=== PATIENT | male | born 2000 | race Caucasian/White ===

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

== ENCOUNTER 2022-01-19 16:28 | Emergency (ER) | payer MEDICAID ==
[~2022-01-19] VITALS: Ht 177.8 cm; Wt 77.3 kg
[2022-01-19 16:35] VITALS: BP 121/73
[2022-01-19] MEDS ORDERED: ULTRAM 50MG TAB50 MG PO (17:18)
[2022-01-19] MEDS ORDERED: MEDROL 4MG DOSPA4 MG PO (17:18)
[2022-01-19 17:28] VITALS: TEMP 97.6
[2022-01-19 17:42] VITALS: PULSE 90
== END 2022-01-19 17:42 | disposition home or self-care (01) ==
LOC: COL.ER 16:28
DX: M25.531 Pain in right wrist (principal)
CPT/HCPCS: J7512

== ENCOUNTER 2022-06-07 17:16 | Emergency (ER) | payer MEDICAID ==
[~2022-06-07] VITALS: Ht 175.3 cm; Wt 90.9 kg
[~2022-06-07 17:16] MED LIST changes: +MEDROL 4MG DOSPA4 MG PO; +ULTRAM 50MG TAB50 MG PO
[2022-06-07 17:26] VITALS: BP 126/86; TEMP 98.4
[2022-06-07 18:43] VITALS: PULSE 81
== END 2022-06-07 18:43 | disposition home or self-care (01) ==
LOC: COL.ER 17:16
DX: S93.401A Sprain of unspecified ligament of right ankle, initial encounter (principal); X50.1XXA Overexertion from prolonged static or awkward postures, initial encounter